=== PATIENT | male | born 1940 | race Caucasian/White ===

== ENCOUNTER 2018-08-18 19:28 | Emergency (ER) | payer MEDICARE, OTHER, MEDICAID ==
[2018-08-18] MEDS: FLUORESCEIN STRIP BOTH EYES (20:33)
[2018-08-18] MEDS: TETRACAINE 0.5% 4 ML OPH BOTH EYES (20:33)
[2018-08-18] MEDS: HYDROCODONE/APAP (5/325) TAB PO (20:33)
[2018-08-18] MEDS: DIPHTH/TET/ACEL PERTUSS (ADULT) 0.5 ML VIAL IM* (20:57)
== END 2018-08-18 21:29 | disposition home or self-care (01) ==
LOC: FTE 19:28
DX: T15.91XA Foreign body on external eye, part unspecified, right eye, initial encounter (principal); X58.XXXA Exposure to other specified factors, initial encounter; Y92.410 Unspecified street and highway as the place of occurrence of the external cause; Z23 Encounter for immunization
CPT/HCPCS: 65205; 90471; 90715; 99283-25